=== PATIENT | female | born 1980 | race African-American/Black ===

== ENCOUNTER 2018-04-19 08:13 | Emergency (ER) | payer OTHER ==
[~2018-04-19] VITALS: Ht 162.6 cm; Wt 74.5 kg
[2018-04-19] MEDS ORDERED: IBUPROFEN 600 MG TABLET PO ONE (09:15)
[2018-04-19 09:26] VITALS: BP 118/77
== END 2018-04-19 09:30 | disposition home or self-care (01) ==
LOC: EMS 08:15
DX: J02.9 Acute pharyngitis, unspecified (principal); H60.93 Unspecified otitis externa, bilateral; F17.210 Nicotine dependence, cigarettes, uncomplicated; M79.1 Myalgia
CPT/HCPCS: 99283; 99406

== ENCOUNTER 2018-09-07 11:56 | Emergency (ER) | payer OTHER ==
[~2018-09-07] VITALS: Ht 160 cm; Wt 78.6 kg
[2018-09-07] MEDS ORDERED: KETOROLAC TROMETHAMINE 30 MG/ML VIAL IM ONE (14:00)
[2018-09-07 14:28] LABS: BILIRUBIN,URINE NEGATIVE (NEGATIVE); GLUCOSE, URINE (UA) NEGATIVE (NEGATIVE); KETONES,URINE NEGATIVE (NEGATIVE); LEUKOCYTE ESTERASE ,URINE NEGATIVE (NEGATIVE); NITRATE,URINE NEGATIVE (NEGATIVE); OCCULT BLOOD,URINE MODERATE (NEGATIVE); PH,URINE 6.5 (5.0-8.0); PROTEIN,URINE NEGATIVE (NEGATIVE)
[2018-09-07 14:29] LABS: INFLUENZA TYPE A NEGATIVE FOR TYPE A (NEGATIVE); INFLUENZA TYPE B NEGATIVE FOR TYPE B (NEGATIVE)
[2018-09-07 14:37] LABS: APPEARANCE,URINE HAZY (CLEAR)
[2018-09-07 14:39] LABS: BACTERIA,URINE Moderate /HPF (None Seen); SQUAMOUS EPITHELIAL CELL,UR Moderate /LPF (None Seen); WBC,URINE 0-2 /HPF (0-5)
[2018-09-07] MEDS ORDERED: ALBUTEROL SULFATE HFA 90 MCG/PUFF 8 GM INHALER IH ONE (14:45)
[2018-09-07 14:52] VITALS: BP 137/78
== END 2018-09-07 15:05 | disposition home or self-care (01) ==
LOC: EMS 11:57
DX: J40 Bronchitis, not specified as acute or chronic (principal); F17.210 Nicotine dependence, cigarettes, uncomplicated
CPT/HCPCS: 71046; 81001; 87086; 87804; 94640; 96372; 99285; 99406; J1885; J3535

== ENCOUNTER 2019-07-06 19:01 | Emergency (ER) | payer OTHER ==
[~2019-07-06] VITALS: Ht 162.6 cm; Wt 76.4 kg
[2019-07-06 19:15] VITALS: BP 134/88
[2019-07-06] MEDS ORDERED: CLINDAMYCIN HCL 150 MG CAPSULE PO ONE (19:30)
[2019-07-06] MEDS ORDERED: KETOROLAC TROMETHAMINE 60 MG/2 ML VIAL IM ONE (19:30)
== END 2019-07-06 20:00 | disposition home or self-care (01) ==
LOC: EMS 19:02
DX: K04.7 Periapical abscess without sinus (principal); K02.9 Dental caries, unspecified; F17.210 Nicotine dependence, cigarettes, uncomplicated
CPT/HCPCS: 81025; 96372; 99283; 99406; J1885